=== PATIENT | male | born 1945 | race Caucasian/White ===

== ENCOUNTER 2023-07-11 11:33 | Emergency (ER) | payer OTHER ==
[~2023-07-11] VITALS: Ht 167.6 cm; Wt 74.8 kg
[2023-07-11 11:41] VITALS: BP 133/56; TEMP 98.3
[2023-07-11] MEDS ORDERED: LIDOCAINE 1%-EPI 1:100,000 20 ML VIAL ONE (11:56)
[2023-07-11] MEDS: LIDOCAINE 1%-EPI 1:100,000 50 ML VIAL IJ ONE (12:15)
[2023-07-11] MEDS ORDERED: DOXY100C2 PO (12:25)
[2023-07-11] MEDS ORDERED: KEFLEX 500 MG PO (12:25)
[2023-07-11] MEDS ORDERED: CEPH500T PO (12:26)
[2023-07-11 12:42] VITALS: O2SAT 98
== END 2023-07-11 12:43 | disposition home or self-care (01) ==
LOC: ER 12:06
DX: L72.3 Sebaceous cyst (principal); L02.818 Cutaneous abscess of other sites; Z86.79 Personal history of other diseases of the circulatory system; Z85.828 Personal history of other malignant neoplasm of skin; Z85.46 Personal history of malignant neoplasm of prostate
CPT/HCPCS: 99283; 10060; J3490 ×2; A6407

== ENCOUNTER 2023-07-16 10:44 | Emergency (ER) | payer OTHER ==
[~2023-07-16] VITALS: Ht 170.2 cm; Wt 74.8 kg
[~2023-07-16 10:44] MED LIST: CEPH500T PO; DOXY100C2 PO; KEFLEX 500 MG PO
[2023-07-16 11:00] VITALS: BP 132/65; TEMP 98.4; O2SAT 99
== END 2023-07-16 11:46 | disposition home or self-care (01) ==
LOC: ER 10:49
DX: Z48.00 Encounter for change or removal of nonsurgical wound dressing (principal); Z85.46 Personal history of malignant neoplasm of prostate; Z85.828 Personal history of other malignant neoplasm of skin; Z86.79 Personal history of other diseases of the circulatory system